=== PATIENT | female | born 1950 | race Asian ===

== ENCOUNTER → 2017-02-27 | Outpatient (CLI) | payer OTHER | LOC: FIMAGING 10:13 | PROVIDERS: ATTEND Family Medicine | DX: Z12.31 Encounter for screening mammogram for malignant neoplasm of breast (principal); Z80.3 Family history of malignant neoplasm of breast | CPT/HCPCS: G0202 ==

== ENCOUNTER 2017-10-11 14:00 | Emergency (ER) | payer OTHER ==
[2017-10-11 14:12] VITALS: TEMP 102.4
--- NOTE | 2017-10-11 15:09 | EDPHY ---
H & P Stated Complaint: flu like symptoms cough fever HPI/ROS: CHIEF COMPLAINT: Cough, fever, body aches HISTORY OF PRESENT ILLNESS: The patient is a 66 y/o female complaining of a cough, body aches, and fever for 3 days. She has been travelling for the past month. Her had similar symptoms and has been taking Augmentin. Today she had a mild headache. She has a decreased appetite today. Received flu vaccination this year. Denies taking medication for her fever today, but did take it yesterday. Denies sinus drainage , ear pain, sore throat, diarrhea, urinary complaints, abdominal pain, chest pain, shortness of breath. REVIEW OF SYSTEMS: A ten point review of systems was performed and is negative with the exception of the items mentioned in the HPI. Past medical history: Denies Past surgical history: Denies Family history: Noncontributory Social history: at bedside, lives in [place], volunteers for [employer]. General Appearance: Alert. Vital signs reviewed. Temperature 39.1 degrees, heart rate 103. Blood pressure 143/73. Eyes: Pupils equal and round, no conjunctival injection, no discharge. Anicteric. ENT, Mouth: Mucous membranes are moist, no oropharyngeal erythema or edema. Neck: No lymphadenopathy, supple. Respiratory: Lungs are clear to auscultation; no wheezes, rales, or rhonchi. Cardiovascular: Mildly tachycardic; no murmur, rub, or gallop. Gastrointestinal: Abdomen is soft and nontender, no masses or organomegaly, bowel sounds normal. Skin: Warm and dry, no rashes on exposed skin, normal color. Back: Nontender to palpation over the thoracolumbar spine. No CVAT. Extremities: No lower extremity edema, no calf tenderness or swelling. Neurological: Alert and oriented. Moving all four extremities easily and equally. Psychiatric: Normal affect. - Personal History Current Tetanus/Diphtheria Vaccine: Yes - Medical/Surgical History Hx Asthma: No Hx Chronic Respiratory Disease: No Hx Diabetes: No Hx Cardiac Disease: No Hx Renal Disease: No Hx Cirrhosis: No Hx Alcoholism: No Hx HIV/AIDS: No Hx Splenectomy or Spleen Trauma: No Other PMH: denies - Social History Smoking Status: Never smoked Constitutional: Initial Vital Signs Temperature (C) 39.1 C H 10/11/17 14:09 Heart Rate 103 H 10/11/17 14:09 Respiratory Rate 20 10/11/17 14:09 Blood Pressure 143/74 H 10/11/17 14:09 O2 Sat (%) 93 10/11/17 14:09 O2 Delivery Mode Room Air Allergies/Adverse Reactions: Penicillins Allergy (Verified 10/11/17 14:09) Home Medications: Medication Instructions Recorded Tylenol 10/11/17 Medical Decision Making ED Course/Re-evaluation: The patient is a 66 y/o female presenting with a temperature of 39.1 degrees and mild tachycardia. She is also complaining of body aches and a cough for the past 3 days. Flu test ordered. 1gm Tylenol administered. 1 L normal saline given. She meets screening criteria for sepsis but I feel that the diagnosis is likely straight forward--influenza. 1624: Patient has influenza A. 1647: Reassessed patient and discussed positive flu results. I will prescribe her Tamiflu and have advised her to take Tylenol or Motrin and increase her fluid intake. Return precautions provided; patient and her are comfortable with this plan. Differential Diagnosis: Fever in adults including but not limited to pneumonia, urinary tract infection , viral syndrome, and influenza. - Data Points Laboratory Results: 10/11/17 15:30 Nasal Influenza A PCR FLU A DETECTED H (NEGATIVE) Nasal Influenza B PCR NEGATIVE FOR FLU B (NEGATIVE) Medications Given: Discontinued Medications Acetaminophen (Tylenol) 1,000 mg PO EDNOW ONE Stop: 10/11/17 15:21 Last Admin: 10/11/17 15:28 Dose: 1,000 mg Sodium Chloride (Ns) 1,000 mls @ 0 mls/hr IV EDNOW ONE; Wide Open PRN Reason: Protocol Stop: 10/11/17 15:21 Last Admin: 10/11/17 15:28 Dose: 1,000 mls Departure - Departure Disposition: Home, Routine, Self-Care Clinical Impression: Influenza A Condition: Good Instructions: Influenza (ED) Additional Instructions: 1. Take Tamiflu as instructed. 2. Adult Pain & Fever Control: We recommend Acetaminophen (Tylenol) and Ibuprofen (Motrin,Advil) for pain and fever control. When fever is high or pain severe, both drugs can be used at the same time, but at different intervals. Please note the time differences. Your dose is: Acetaminophen 650mg every 4 to 6 hours Ibuprofen 400mg every 6-8 hours with food. Note: do not take Acetaminophen with Hydrocodone (Vicodin, Lortab) or Oycodone (Percocet). These medications also contain Acetaminophen. No more than 3000mg of Acetaminophen should be taken in 24 hours (for an adult). 3. Increase fluid intake as much as tolerated. 4. Follow up with primary care physician in 3-4 days if not improving. 5. Return to the Emergency Department for uncontrollable fever, shortness of breath, or other worsening of condition. Referrals: Matti Garcia MD [Primary Care Provider] - As per Instructions Report Scribed for: Lesly Shipley Report Scribed by: Kiki Ruano Date of Report: 10/11/17 Time of Report: 15:11 Physician Review and Approval Statement: 10/11/17 15:09 Portions of this note were transcribed by the medical liaison. I, Dr. Lesly Shipley, personally performed the history, physical exam, and medical decision- making; and confirmed the accuracy of the information in the transcribed note.
[2017-10-11] MEDS ORDERED: ACETAMINOPHEN 500 MG TAB PO ONE (15:20)
[2017-10-11] MEDS ORDERED: NS 1,000 ML IV ONE (15:20)
[2017-10-11] MEDS ORDERED: OSELTAMIVIR PHOSPHATE 75 MG CAP ONE (17:10)
[2017-10-11] MEDS ORDERED: OSELTAMIVIR PHOSPHATE 75 MG CAP PO ONE (17:13)
[2017-10-11 17:17] VITALS: BP 128/59; PULSE 87; RESP 19; O2SAT 92
== END 2017-10-11 17:17 | disposition home or self-care (01) ==
PROC: 3E0337Z Introduction of Electrolytic and Water Balance Substance into Peripheral Vein, Percutaneous Approach (ICD-10-PCS; principal; 2017-10-11)
DX: J10.1 Influenza due to other identified influenza virus with other respiratory manifestations (principal); E86.9 Volume depletion, unspecified

== ENCOUNTER → 2018-03-16 | Outpatient (CLI) | payer OTHER | LOC: FIMAGING 12:02 | PROVIDERS: ATTEND Family Medicine | DX: M79.661 Pain in right lower leg (principal); M71.21 Synovial cyst of popliteal space [Baker], right knee ==

== ENCOUNTER → 2018-03-19 | Outpatient (CLI) | payer OTHER | LOC: BMCIMAGING 08:33 | PROVIDERS: ATTEND Physician Assistant | DX: M25.561 Pain in right knee (principal) ==

== ENCOUNTER → 2018-04-01 | Outpatient (CLI) | payer OTHER | LOC: FIMAGING 12:49 | PROVIDERS: ATTEND Family Medicine | DX: Z12.31 Encounter for screening mammogram for malignant neoplasm of breast (principal); Z13.820 Encounter for screening for osteoporosis; M85.89 Other specified disorders of bone density and structure, multiple sites; Z78.0 Asymptomatic menopausal state; Z80.3 Family history of malignant neoplasm of breast ==

== ENCOUNTER → 2018-09-16 | Outpatient (CLI) | payer OTHER | LOC: BMCIMAGING 15:30 | PROVIDERS: ATTEND Family Medicine | DX: M43.16 Spondylolisthesis, lumbar region (principal); M47.816 Spondylosis without myelopathy or radiculopathy, lumbar region; M46.97 Unspecified inflammatory spondylopathy, lumbosacral region; M53.3 Sacrococcygeal disorders, not elsewhere classified ==

== ENCOUNTER → 2019-03-23 | Outpatient (CLI) | payer OTHER | LOC: FIMAGING 11:35 ==